=== PATIENT | female | born 1955 | race African-American/Black ===

== ENCOUNTER 2018-01-30 21:46 | Emergency (ER) | payer SELFPAY ==
[2018-01-30] MEDS ORDERED: valACYclovir 500 MG TAB ONE ×2 (22:19)
[2018-01-30] MEDS ORDERED: HYDROcodone/Acetaminophen 5/325 mg Tablet ONE (22:25)
== END 2018-01-30 22:32 | disposition home or self-care (01) ==
LOC: BURERS 21:46
DX: B02.9 Zoster without complications (principal); E78.5 Hyperlipidemia, unspecified; I10 Essential (primary) hypertension
CPT/HCPCS: 99282

== ENCOUNTER 2019-01-30 14:14 | Emergency (ER) | payer SELFPAY ==
[2019-01-30] MEDS ORDERED: traMADol HCl 50 MG TAB ONE (15:00)
--- NOTE | 2019-01-30 17:42 | RAD ---
RIGHT KNEE FOUR VIEWS: Date: 01-30-19 Comparison: 01-09-19 FINDINGS: No fracture or joint effusion was seen. There has been no adverse change in the interval. The bony st ructures currently appear normal. IMPRESSION: No acute finding. POS: HOME
== END 2019-01-30 15:00 | disposition home or self-care (01) ==
LOC: BURERS 14:14
DX: S83.91XA Sprain of unspecified site of right knee, initial encounter (principal); I10 Essential (primary) hypertension; E78.00 Pure hypercholesterolemia, unspecified; Z79.899 Other long term (current) drug therapy; W18.2XXA Fall in (into) shower or empty bathtub, initial encounter

== ENCOUNTER 2020-09-06 08:51 | Emergency (ER) | payer SELFPAY | END 2020-09-06 09:20 | disposition home or self-care (01) | LOC: BURERS 08:51 | DX: B35.6 Tinea cruris (principal); I10 Essential (primary) hypertension; E78.00 Pure hypercholesterolemia, unspecified; E11.9 Type 2 diabetes mellitus without complications; Z79.84 Long term (current) use of oral hypoglycemic drugs; Z79.899 Other long term (current) drug therapy | CPT/HCPCS: 99283 ==

== ENCOUNTER 2022-02-22 21:03 | Emergency (ER) | payer MEDICARE, SELFPAY ==
[2022-02-22 21:48] LABS: ALT (SGPT) 17 U/L (8-55); AST (SGOT) 14 U/L (5-34); Albumin 4.3 g/dL (3.4-4.8); Alkaline Phosphatase 81 U/L (40-110); Anion Gap 16 mmol/L (10-20); BUN (Urea Nitrogen) 10 mg/dL (9.8-20.1); Bilirubin, Total 0.7 mg/dL (0.2-1.2); Calc. Creatinine Clearance 0 mL/min (70-130); Calcium 9.3 mg/dL (7.8-10.44); Carbon Dioxide 27 mmol/L (23-31); Chloride 103 mmol/L (98-107); Globulin 3.4 g/dL (2.4-3.5); Glucose 116 mg/dL (80-115); Potassium 3.4 mmol/L (3.5-5.1); Protein, Total 7.7 g/dL (5.8-8.1); Sodium 143 mmol/L (136-145)
[2022-02-22] MEDS ORDERED: Aspirin Chewable 81 MG TAB ONE (21:50)
[2022-02-22] MEDS ORDERED: Nitroglycerin 0.4 MG TAB 1 EACH ONE (21:50)
[2022-02-22 22:03] LABS: Hemoglobin 14.5 g/dL (12.0-16.0); Mean Corpuscular HGB CONC 33.3 g/dL (32.0-36.0); Mean Corpuscular Hemoglobin 29.6 pg (27.0-31.0); Mean Corpuscular Volume 89.1 fL (78.0-98.0); Mean Platelet Volume 6.4 fL (7.4-10.4); Platelet Count 248 thou/uL (130-400); RBC Distribution Width 12.4 % (11.5-14.5); Red Blood Cell (RBC) Count 4.91 mill/uL (4.20-5.40); White Blood Cell (WBC) Count 6.6 thou/uL (4.8-10.8)
[2022-02-22 22:28] LABS: Eosinophils 4 % (0-10); Lymphocytes 42 % (21-51); MDiff Complete? YES; Monocytes 10 % (0-10); Neutrophil 44 % (42-75); RBC Morphology Normal
== END 2022-02-22 22:22 | disposition home or self-care (01) ==
LOC: BURERS 21:03
DX: R07.9 Chest pain, unspecified (principal); E11.9 Type 2 diabetes mellitus without complications; I10 Essential (primary) hypertension; E78.5 Hyperlipidemia, unspecified; E78.00 Pure hypercholesterolemia, unspecified; Z79.84 Long term (current) use of oral hypoglycemic drugs; Z79.899 Other long term (current) drug therapy
CPT/HCPCS: 71045; 80053; 84484; 85025; 93005; 94760